=== PATIENT | female | born 1965 | race Caucasian/White ===

== ENCOUNTER 2016-12-24 14:39 | Observation (INO) | payer OTHER, MEDICARE ==
[2016-12-24] MEDS ORDERED: ASPIRIN 81 MG CHEW PO STA (15:31)
[2016-12-24] MEDS ORDERED: NITROGLYCERIN OINT 1 INCH/GM PACKET TOPICAL STA (15:31)
[2016-12-24 15:48] LABS: Basophils % (A) 1 %; CH 32.2; CHCM 35.4; Eosinophils # (A) 0.1 k/uL (0-0.7); Eosinophils % (A) 1 %; HCT 40.5 % (34.0-46.0); HDW 2.57; HGB 14.3 gm/dL (11.4-16.0); Luc # (Auto) 0.19; Luc % (Auto) 4; Lymphocytes # (A) 1.9 k/uL (1.0-4.8); Lymphocytes % (A) 35 %; MCH 32.4 pg (25.0-35.0); MCHC 35.4 g/dL (31.0-37.0); MCV 91.5 fL (80.0-100.0); Mean Platelet Volume 7.9; Monocytes # (A) 0.3 k/uL (0-1.0); Monocytes % (A) 5 %; Neutrophils # (A) 2.9 k/uL (1.3-7.7); Neutrophils % (A) 54 %; RBC 4.43 m/uL (3.80-5.40); RDW 12.6 % (11.5-15.5); WBC 5.4 k/uL (3.8-10.6); WBC (Perox) 5.44
--- NOTE | 2016-12-24 15:54 | XR ---
EXAMINATION TYPE: XR chest 2V DATE OF EXAM: 12/24/2016 3:48 PM COMPARISON: 09/08/2016 HISTORY: Chest pain TECHNIQUE: Frontal and lateral views of the chest are obtained. FINDINGS: Heart and mediastinum are normal. Lungs are clear. Diaphragm is normal. Bony thorax is int act. There are chest leads. IMPRESSION: Normal chest. No change.
[2016-12-24 16:01] LABS: ALT 39 U/L (9-52); AST 37 U/L (14-36); Alkaline Phosphatase 62 U/L (38-126); Anion Gap 12 mmol/L; Blood Urea Nitrogen 12 mg/dL (7-17); Calcium 10.1 mg/dL (8.4-10.2); Carbon Dioxide 23 mmol/L (22-30); Chloride 107 mmol/L (98-107); Glucose 94 mg/dL (74-99); Magnesium 2.1 mg/dL (1.6-2.3); Non-African American GFR(MDRD) >60 (>60 ml/min/1.73 sqM); Potassium 4.2 mmol/L (3.5-5.1); Sodium 142 mmol/L (137-145); Total Bilirubin 0.9 mg/dL (0.2-1.3); Total Protein 7.6 g/dL (6.3-8.2)
[2016-12-24 16:10] LABS: Creatine Kinase 127 U/L (30-135)
[2016-12-24 16:13] LABS: Partial Thromboplastin Time 22.9 sec (22.0-30.0); Prothrombin Time 10.4 sec (9.0-12.0)
[2016-12-24 16:23] LABS: Creatine Kinase MB 1.1 ng/mL (0.0-2.4); Troponin I <0.012 ng/mL (0.000-0.034)
[2016-12-24] MEDS ORDERED: MORPHINE SULFATE 4 MG/ML SYRINGE IV STA (16:55)
[2016-12-24] MEDS ORDERED: NITROGLYCERIN SL TABS 0.4 MG TAB SUBLINGUAL PRN (17:22)
--- NOTE | 2016-12-24 17:22 | ED ---
Chest Pain HPI - General Chief Complaint: Chest Pain Stated Complaint: rapid heart rate/feels off Time Seen by Provider: 12/24/16 15:23 Source: patient Mode of arrival: ambulatory Limitations: no limitations - History of Present Illness Initial Comments: This 51-year-old white female presents with a complaint of some chest pain and palpitations. The pain is on the left side and is described as a jabbing type of pain that seems to radiate posteriorly. It is intermittent in nature. She also complains of some moderate palpitations. She saw her tailings man yesterday, Dr. Packer, and he recommended a Holter monitor and echocardiogram. She did not have the pain at that time and that this came on this morning. She also has some shortness of breath which is worse with exertion but this is more chronic in nature. Her last stress test was in 2012. She has had occasional cough. She denies any fevers. She does have a history of previous DVT in fact or 5 Leiden deficiency. She previously was on Coumadin but could not tolerate this and so now is only on Ecotrin. She has occasional leg cramping but no swelling or edema. She denies any other complaints or modifying factors. - Related Data Home Medications Medication Instructions Recorded Confirmed Amitriptyline HCl [Elavil] 10 mg PO HS PRN 12/24/16 12/24/16 Aspirin EC [Ecotrin Low Dose] 81 mg PO DAILY 12/24/16 12/24/16 Cyanocobalamin/Folic AC/Vit B6 1 tab PO DAILY 12/24/16 12/24/16 [Foltabs 800 Tablet] Cyclobenzaprine [Flexeril] 5 mg PO TID 12/24/16 12/24/16 Dicyclomine [Bentyl] 20 mg PO QID PRN 12/24/16 12/24/16 Fluticasone Nasal [place] [Flonase 1 - 2 spr EA NOSTRIL DAILY PRN 12/24/16 Nasal [place]] Ibuprofen [Motrin] 800 mg PO Q8HR PRN 12/24/16 12/24/16 Levoxyl 100 mcg PO MOTUWETHFRSA 12/24/16 12/24/16 Levoxyl 150 mcg PO NIELSEN 12/24/16 12/24/16 Pantoprazole [Protonix] 40 mg PO DAILY 12/24/16 12/24/16 Sucralfate [Carafate] 1 gm PO QID 12/24/16 12/24/16 clonazePAM [KlonoPIN] 0.5 - 0.75 mg PO HS PRN 12/24/16 12/24/16 tiZANidine HCL [Zanaflex] 2 - 4 mg PO TID PRN 12/24/16 12/24/16 traMADol HCL [Ultram] 50 mg PO Q6H PRN 12/24/16 12/24/16 traZODone HCL [Desyrel] 50 - 100 mg PO HS 12/24/16 12/24/16 Allergies Allergy/AdvReac Type Severity Reaction Status Date / Time No Known Allergies Allergy Verified 12/24/16 15:41 Review of Systems ROS Statement: Those systems with pertinent positive or pertinent negative responses have been documented in the HPI. ROS Other: All systems not noted in ROS Statement are negative. Past Medical History Additional Past Medical History / Comment(s): factor V History of Any Multi-Drug Resistant Organisms: None Reported Past Psychological History: No Psychological Hx Reported Smoking Status: Never smoker Past Alcohol Use History: None Reported Past Drug Use History: None Reported General Exam - General Exam Comments Initial Comments: GENERAL: The patient is well nourished and well hydrated. VITAL SIGNS: Heart rate, blood pressure, respiratory rate reviewed as recorded in nurse's notes. EYES: Pupils are round and reactive. Extraocular movements are intact. No conjunctival / lid redness or swelling. ENT: No external evidence of injury, swelling, or ecchymosis. Airway is patent. Throat is clear. NECK: Nontender. No swelling or evidence of injury. No subcutaneous emphysema. Trachea is midline. No thyroid mass. HEART: Regular rate and rhythm. Good peripheral pulses. LUNGS/CHEST: Breath sounds clear and equal bilaterally. No rales, rhonchi, or wheezes. No ecchymosis, subcutaneous emphysema, or tenderness. ABDOMEN: Abdomen soft without tenderness. No palpable masses or organomegaly. No peritoneal signs. No abdominal wall swelling or ecchymosis. EXTREMITIES: No extremity tenderness. Normal muscle tone and function. No thoracolumbar tenderness. NEUROLOGIC: Sensation is grossly intact. Cranial nerve exam reveals face is symmetrical, tongue is midline, speech is clear. SKIN: No abrasions or ecchymosis is noted. No induration or masses noted. PSYCHIATRIC: Alert and oriented. Appropriate behavior and judgment. Limitations: no limitations Course Vital Signs 12/24/16 12/24/16 12/24/16 14:46 15:40 17:15 Temperature 99.0 F 97.9 F Pulse Rate 90 76 81 Respiratory 20 18 15 Rate Blood Pressure 121/91 102/66 109/66 O2 Sat by Pulse 99 98 97 Oximetry Chest Pain MDM - MDM The patient was seen and examined. All diagnostics were reviewed. An EKG was done and shows a normal sinus rhythm at a rate of 80. No acute ST-T wave changes are identified. The [place] interval is 132, QRS duration is 92, and QTC intervals 422. The chest x-ray is reviewed and does not show any acute abnormalities. The laboratory which does include a d-dimer and troponin is also essentially within normal limits. Shortly into the stay and after the nitroglycerin paste is applied, she does complain of a headache. She does receive some morphine for the headache. She also receives 1 inch of Nitropaste to anterior chest wall and an aspirin previously. Overall, the possibility of acute coronary syndrome certainly is plausible. Is felt as though she benefit from admission to the hospital for further treatment. Case will be discussed with internal medicine in the near future patient is admitted for a short stay admission. Disposition Clinical Impression: Chest pain, Unstable angina pectoris, Headache, Palpitations Disposition: ADMITTED IP TO THIS HOSP Condition: Fair Time of Disposition: 17:21 Decision Date: 12/24/16 Decision Time: 17:21
[2016-12-24] MEDS ORDERED: DICYCLOMINE 20 MG TAB PO PRN (17:26)
[2016-12-24] MEDS ORDERED: FLUTICASONE 50MCG/SPRAY NASAL 16GM EA NOSTRIL PRN (17:26)
[2016-12-24] MEDS ORDERED: tiZANidine 4 MG TAB PO PRN (17:26)
[2016-12-24] MEDS ORDERED: IBUPROFEN 800 MG TAB PO PRN (17:26)
[2016-12-24] MEDS: traMADol 50 MG TAB PO PRN (18:28)
[2016-12-24 18:49] VITALS: BMI 31.8
[2016-12-24] MEDS: MORPHINE SULFATE 4 MG/ML SYRINGE IV PRN (20:51)
[2016-12-24] MEDS: CYCLOBENZAPRINE 5 MG TAB PO SCH (20:52)
[2016-12-24] MEDS: traZODone HCL 50 MG TAB PO SCH (20:52)
[2016-12-24] MEDS: SUCRALFATE 1 GM TAB PO SCH (20:52)
[2016-12-24] MEDS ORDERED: clonazePAM 0.5 MG TAB PO PRN (21:00)
[2016-12-24] MEDS ORDERED: AMITRIPTYLINE HCL 10 MG TAB PO PRN (21:00)
[2016-12-24 22:38] LABS: Creatine Kinase 96 U/L (30-135)
[2016-12-24 22:51] LABS: Creatine Kinase MB 0.7 ng/mL (0.0-2.4); Troponin I <0.012 ng/mL (0.000-0.034)
[2016-12-25 03:21] LABS: Cholesterol 198 mg/dL (<200); HDL Cholesterol 67 mg/dL (40-60); Triglycerides 93 mg/dL (<150)
[2016-12-25 03:26] LABS: Creatine Kinase 77 U/L (30-135)
[2016-12-25 03:39] LABS: Creatine Kinase MB 0.6 ng/mL (0.0-2.4); Troponin I <0.012 ng/mL (0.000-0.034)
[2016-12-25] MEDS: SUCRALFATE 1 GM TAB PO SCH ×5 (04:49→21:34)
[2016-12-25] MEDS: NITROGLYCERIN OINT 1 INCH/GM PACKET TOPICAL SCH ×2 (04:50→06:35)
[2016-12-25] MEDS ORDERED: LEVOTHYROXINE 150 MCG PO SCH (06:30)
[2016-12-25] MEDS: traMADol 50 MG TAB PO PRN (07:55)
[2016-12-25] MEDS ORDERED: ENOXAPARIN 40 MG/0.4 ML SYRINGE SQ SCH (09:00)
[2016-12-25] MEDS ORDERED: ASPIRIN 325 MG TAB PO SCH (09:00)
[2016-12-25] MEDS: MORPHINE SULFATE 4 MG/ML SYRINGE IV PRN (09:35)
--- NOTE | 2016-12-25 10:14 | P.CRDCN ---
History of Present Illness Consult date: 12/25/16 Requesting physician: Brendan Ramos Consult reason: chest pain Chief complaint: Chest pain History of present illness: This is a pleasant 51-year-old female with history of hypothyroidism, factor V Leiden deficiency, prior DVT, spinal stenosis, who presents to the hospital with symptoms of chest discomfort. She does follow with Dr. Floyd, who is her wind field manager. According to the patient, for the past 2 weeks she states that she's been waking up in the morning with headache and mild diaphoresis. She also states that recently walking up stairs she has noticed shortness of breath. Yesterday, patient again awoke with headache, she states later on in the morning she developed a sharp pain in the left side of her chest that radiated through to her back. Pain worsened with deep breathing. She states that the pain lasted approximately 3 minutes in duration, but returned again later in the morning. For this reason she came to the hospital for further evaluation. Patient has been seen recently by her wind field manager because of symptoms of occasional palpitations, she has been referred to have an outpatient Holter monitor, and was scheduled to undergo an echocardiogram with Doppler study next week. EKG on arrival here showed normal sinus rhythm with changes. Subsequent EKG this morning shows normal sinus rhythm with no acute changes. Chest x-ray on admission normal. CBC normal, d-dimer 0.57. Potassium 4.2, BUN 12, creatinine 0.7. Troponins negative 3. Blood pressure 98/60 with heart rate in the 60s. At the time of my examination this morning, patient is currently chest pain-free. Past Medical History Past Medical History: GERD/Reflux, Thyroid Disorder Additional Past Medical History / Comment(s): factor V, lupus, reversal spondlosis neck/spine, minimal obstructive airway disease History of Any Multi-Drug Resistant Organisms: None Reported Past Surgical History: Cholecystectomy Additional Past Surgical History / Comment(s): endometriosis surgeries, righ knee scope and realigned with plate and screws, pre-cervical cancer with hysterectomy (only has right ovary), lump removed from right thigh Past Anesthesia/Blood Transfusion Reactions: No Reported Reaction Past Psychological History: No Psychological Hx Reported Smoking Status: Never smoker Past Alcohol Use History: None Reported Past Drug Use History: None Reported - Past Family History Mother Additional Family Medical History / Comment(s): aortic anersym and abdominal anersym, 2 NC, open heart surgery with pig graft. Medications and Allergies Home Medications Medication Instructions Recorded Confirmed Type Amitriptyline HCl [Elavil] 10 mg PO HS PRN 12/24/16 12/24/16 History Aspirin EC [Ecotrin Low Dose] 81 mg PO DAILY 12/24/16 12/24/16 History Cyanocobalamin/Folic AC/Vit B6 1 tab PO DAILY 12/24/16 12/24/16 History [Foltabs 800 Tablet] Cyclobenzaprine [Flexeril] 5 mg PO TID 12/24/16 12/24/16 History Dicyclomine [Bentyl] 20 mg PO QID PRN 12/24/16 12/24/16 History Fluticasone Nasal [place] [Flonase 1 - 2 spr EA NOSTRIL DAILY PRN 12/24/16 History Nasal [place]] Ibuprofen [Motrin] 800 mg PO Q8HR PRN 12/24/16 12/24/16 History Levoxyl 100 mcg PO MOTUWETHFRSA 12/24/16 12/24/16 History Levoxyl 150 mcg PO MCGRATH 12/24/16 12/24/16 History Pantoprazole [Protonix] 40 mg PO DAILY 12/24/16 12/24/16 History Sucralfate [Carafate] 1 gm PO QID 12/24/16 12/24/16 History clonazePAM [KlonoPIN] 0.5 - 0.75 mg PO HS PRN 12/24/16 12/24/16 History tiZANidine HCL [Zanaflex] 2 - 4 mg PO TID PRN 12/24/16 12/24/16 History traMADol HCL [Ultram] 50 mg PO Q6H PRN 12/24/16 12/24/16 History traZODone HCL [Desyrel] 50 - 100 mg PO HS 12/24/16 12/24/16 History Allergies Allergy/AdvReac Type Severity Reaction Status Date / Time No Known Allergies Allergy Verified 12/24/16 15:41 Physical Exam Vitals: Vital Signs Temp Pulse Resp BP Pulse Ox 12/25/16 08:00 97.9 F 68 14 98/68 97 12/25/16 04:00 98.1 F 16 102/60 95 12/25/16 00:00 18 03/25/17 23:33 69 18 101/55 95 12/24/16 20:00 18 12/24/16 19:35 98 F 74 18 103/61 95 12/24/16 18:30 98.0 F 73 16 102/59 95 Intake and Output 12/24/16 12/25/16 12/25/16 22:59 06:59 14:59 Other: Voiding Method Toilet Toilet Toilet # Voids 1 Weight 78.9 kg PHYSICAL EXAMINATION: HEENT: Head is atraumatic, normocephalic. Pupils equal, round. Neck is supple. There is no elevated jugular venous pressure. HEART EXAMINATION: Heart S1, S2 normal. No murmur or gallop heard. CHEST EXAMINATION: Lungs are clear to auscultation and precussion. No chest wall tenderness is noted on palpation or with deep breathing. ABDOMEN: Soft, nontender. Bowel sounds are heard. No organomegaly noted. EXTREMITIES: 2+ peripheral pulses with no evidence of peripheral edema and no calf tenderness noted. NEUROLOGIC patient is awake, alert and oriented -3. . Results 12/24/16 15:12 12/24/16 15:12 Cardiac Enzymes 12/24/16 12/25/16 Range/Units 21:30 02:41 CK-MB (CK-2) 0.7 0.6 (0.0-2.4) ng/mL Troponin I <0.012 <0.012 (0.000-0.034) ng/mL Lipids 12/25/16 Range/Units 02:41 Triglycerides 93 (<150) mg/dL Cholesterol 198 (<200) mg/dL HDL Cholesterol 67 H (40-60) mg/dL Current Medications Generic Name Dose Route Start Last Admin Trade Name Freq PRN Reason Stop Dose Admin Amitriptyline HCl 10 mg 12/24/16 21:00 Elavil PO HS PRN SLEEP Aspirin 325 mg 12/25/16 09:00 Aspirin PO DAILY FARHAT Clonazepam 0.5 mg 12/24/16 21:00 Klonopin PO HS PRN ANXIETY/SLEEP Cyclobenzaprine HCl 5 mg 12/24/16 22:00 12/24/16 20:52 Flexeril PO 5 mg TID FARHAT Administration Dicyclomine HCl 20 mg 12/24/16 17:26 Bentyl PO QID PRN Stomach cramps Enoxaparin Sodium 40 mg 12/25/16 09:00 Lovenox SQ DAILY [facility] Fluticasone Propionate 2 spray 12/24/16 17:26 Flonase Nasal [place] EA NOSTRIL DAILY PRN Allergy Symptoms Folic Acid 1 each 12/25/16 09:00 Folbic PO DAILY [facility] Ibuprofen 800 mg 12/24/16 17:26 Motrin PO Q8HR PRN Headache Morphine Sulfate 4 mg 12/24/16 17:22 12/25/16 09:35 Morphine Sulfate (Inj) IV 4 mg Q3H PRN Administration Severe Pain Nitroglycerin 0.5 inch 12/25/16 00:00 12/25/16 06:35 Nitro-Bid Oint TOPICAL Not Given Q6HR [facility] Nitroglycerin 0.4 mg 12/24/16 17:22 Nitrostat SUBLINGUAL Q5M PRN Chest Pain Non-Formulary Medication 100 mcg 12/26/16 06:30 Levoxyl PO [id number] [facility] Non-Formulary Medication 150 mcg 12/25/16 06:30 Levoxyl PO [email or web address] [facility] Pantoprazole Sodium 40 mg 12/25/16 09:00 Protonix PO DAILY [facility] Sucralfate 1 gm 12/24/16 18:00 12/25/16 04:49 Carafate PO Not Given QID [facility] Tizanidine HCl 4 mg 12/24/16 17:26 Zanaflex PO TID PRN Spasms Tramadol HCl 50 mg 12/24/16 17:26 12/25/16 07:55 Ultram PO 50 mg Q6H PRN Administration Moderate Pain Trazodone HCl 50 mg 12/24/16 21:00 12/24/16 20:52 Desyrel PO 50 mg HS [facility] Administration Intake and Output 12/24/16 12/25/16 12/25/16 22:59 06:59 14:59 Other: Voiding Method Toilet Toilet Toilet # Voids 1 Weight 78.9 kg EKG Interpretations (text) EKG shows normal sinus rhythm with no acute changes. Assessment and Plan Plan: Assessment and plan #1 atypical chest discomfort, troponins negative 3. EKG shows normal sinus rhythm with no acute changes. D-dimer negative. #2 hypothyroidism #3 factor V Leiden deficiency, history of prior DVT, patient had been on Coumadin in the past, she takes an aspirin daily. #4 cardiac risk factors negative for hypertension, no diabetes, no hyperlipidemia, patient does not smoke. #5 history of reversible spondylosis Plan We will obtain an echocardiogram with Doppler study. Patient has also been advised to undergo stress echocardiographic study tomorrow if negative she may be able to be discharged from cardiology's perspective to follow-up with her wind field manager on discharge. We will discontinue the nitro paste, discontinue Lovenox, decrease aspirin 81 mg daily. Further recommendations to follow. DNP note has been reviewed, I agree with a documented findings and plan of care. Patient was seen and examined.
[2016-12-25] MEDS: CYANOCOBALAMIN-FA-PYRIDOXINE 1 EACH TAB PO SCH (10:56)
[2016-12-25] MEDS: PANTOPRAZOLE 40 MG TABLET PO SCH (10:57)
[2016-12-25] MEDS: CYCLOBENZAPRINE 5 MG TAB PO SCH ×3 (10:57→21:34)
[2016-12-25] MEDS ORDERED: LEVOXYL 100 MCG PO SCH (12:00)
[2016-12-25 12:53] VITALS: RESP 16
[2016-12-25] MEDS ORDERED: RX INFO: IV CONTRAST WAS GIVEN 1 EACH MISC MISCELLANE PRN (18:35)
--- NOTE | 2016-12-25 19:49 | CT ---
EXAMINATION TYPE: CT angio chest DATE OF EXAM: 12/25/2016 7:40 PM COMPARISON: NONE HISTORY: Patient complains of chest pain and difficulty breathing. CT DLP: 254.4 mGycm Automated exposure control for dose reduction was used. CONTRAST: CTA scan of the thorax is performed with IV Contrast, patient injected with 100 mL of Omnipaque 350, pulmonary embolism protocol. . FINDINGS: There are 3-D post processed images. There is no pleural effusion. There is no pericardial effusion. There is mild linear density at the l eft lung base consistent with subsegmental atelectasis. There is no evidence of a pulmonary mass. There is no mediastinal adenopathy. There are no hilar masses. Heart size is normal. There are no stephanie ling defects in the pulmonary arteries. There is no evidence of aortic aneurysm or dissection. The [place] thorax is intact. IMPRESSION: NO EVIDENCE OF PULMONARY EMBOLISM. MINIMAL SUBSEGMENTAL ATELECTASIS AT THE LEFT LUNG BASE.
[2016-12-25] MEDS: traZODone HCL 50 MG TAB PO SCH (21:34)
[2016-12-26] MEDS ORDERED: LEVOXYL 100 MCG PO SCH (06:30)
[2016-12-26] MEDS: traMADol 50 MG TAB PO PRN ×2 (07:36→14:05)
[2016-12-26 07:44] LABS: Glucose,Whole Blood 91 mg/dL (75-99)
--- NOTE | 2016-12-26 08:24 | HP ---
DATE OF ADMISSION: 12/24/2016 PRESENTING COMPLAINT: Headache, chest pain. HISTORY OF PRESENTING COMPLAINT: This is a very pleasant 51 -year-old patient of Dr. Bobby with rather extensive medical history. Chronic stable conditions include GERD, hypothyroid, factor V Leiden deficiency, mutation. Patient also has been told in the past she has been diagnosed with Lupus and then with a question about not having the same. Patient also has had deep venous thromboses in the past. Patient has got a diagnosis of reverse spondylosis. Hence not able to sleep at night and sleeping only 2 to 3 hours. Does not sleep in the daytime. The patient saw a associate professor of forestry, Dr. Floyd, a couple of days ago and noticed skipping beat and was ordered Holter. Patient presented here with multi symptoms, when she had nausea, headaches especially in the morning for the last 6 to 7 days, also has been having sharp, piercing pain in the left upper part of the chest. Her chest questionable shortness of breath. No dizziness. No lightheadedness, no radiation not really related to exertion. Patient was seen by cardiology earlier, who did order a stress test, the patient has had DVT' in the past. REVIEW OF SYSTEMS: CONSTITUTIONAL: Tired. HEENT: Generalized headache, not debilitating. NECK: None. RESPIRATORY: As above. CARDIOVASCULAR: As above. GASTROINTESTINAL: None. GENITOURINARY: None. MUSCULOSKELETAL: Aches and pains in the joints. Dermatological: The fingertips skin and the fingertips just get discolored, getting cold. HEMATOLOGICAL: History of deep venous thrombosis. LYMPHATICS: None. PSYCHIATRY: Anxious. NEUROLOGICAL: None. Past medical history: Gastroesophageal reflux disease, hypothyroid, factor V mutation, lupus, reverse spondylosis, minimal obstructive airway disease. Irritable bowel syndrome. PAST SURGICAL HISTORY: Cholecystectomy, endometriosis, right knee scope, hysterectomy, lump removed from the right thigh, left oophorectomy. SOCIAL HISTORY: . Does not smoke or drink alcohol, homemaker. Family history of aortic aneurysm, abdominal aneurysm, two MIs. HOME MEDICATIONS: 1. Levoxyl 150 mcg on Sundays 100 mcg on Monday, Monday, Monday, , Monday, Monday. 2. Bentyl 20 mg p.o. q.i.d. p.r.n. 3. Flexeril 5 mg p.o. t.i.d. 4. Aspirin 320 mg p.o. daily. 5. Desyrel 50 to 100 mg p.o. q.h.s. 6. Ultram 50 mg q.6. 7. Zanaflex 4 mg p.o. daily p.r.n. 8. Klonopin 0.5 to 0.75 mg p.o. q.h.s. p.r.n. 9. Protonix 40 mg a day. 10. Flonase 1 to 2 sprays each nostril daily p.r.n. 11. Carafate 1 gram p.o. q.i.d. 12. Motrin 800 mg p.o. q.8 p.r.n. 13. Elavil 100 mg p.o. q.8 p.r.n. 14. Foltabs 1 tablet p.o. daily. ALLERGIES: None. PHYSICAL EXAMINATION: Vital signs on exam, temperature 98.3, pulse 58, respirations 16, blood pressure 111/33, pulse ox 97% on room air. GENERAL: Average build, lying in bed, not in distress. EYES: Pupils equal, conjunctivae normal. HEENT: Oral cavity normal. NECK: JVD not raised. Mass not palpable. RESPIRATORY: Effort normal. Lungs are clear. CARDIOVASCULAR: First and second sounds normal. No edema. ABDOMEN: Soft and nontender. Liver and spleen not palpable. LYMPHATIC: No lymph nodes palpable in neck or axillae. PSYCHIATRY: Alert and oriented x3. Mood and affect slightly anxious appearing. NEUROLOGICAL: Pupils equal, cranial nerves grossly intact. Power and sensation grossly intact. INVESTIGATIONS: White count 5.4, hemoglobin 14.3, potassium 4.2. BUN and creatinine are normal. Troponin x3 negative. LDL 112. EKG normal sinus rhythm. ASSESSMENT: 1. ( ) left anterior chest wall pain could be musculoskeletal. Given the history of lupus and deep venous thrombosis in the past, need to rule out pulmonary embolism. 2. Chronic gastroesophageal reflux disease. 3. Hypothyroidism. 4. Factor V Leiden mutation. 5. Possible history of lupus. 6. 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 7. Irritable bowel syndrome. 8. Severe sleep deprivation with exhaustion due to underlying chronic pain. PLAN: ( ) was held with the patient and , talked about lifestyle modification. Patient needs to get some catch up naps during the daytime. Did talk about pain controlling modalities like mindfulness, water aerobics, stretching. We ordered a CT angio of the chest to rule out PE. Cardiology has ordered a stress echocardiogram for the morning. We will have patient follow with Dr. Herr as an outpatient for the history of DVT's in the setting of lupus. 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 Questions were answered. Copy to Dr. Bobby.
[2016-12-26] MEDS: MORPHINE SULFATE 4 MG/ML SYRINGE IV PRN (08:45)
[2016-12-26] MEDS ORDERED: ASPIRIN 81 MG CHEW PO SCH (09:00)
[2016-12-26] MEDS: PANTOPRAZOLE 40 MG TABLET PO SCH (11:03)
[2016-12-26] MEDS: SUCRALFATE 1 GM TAB PO SCH ×2 (11:03→13:48)
[2016-12-26] MEDS: CYCLOBENZAPRINE 5 MG TAB PO SCH (11:04)
[2016-12-26] MEDS: CYANOCOBALAMIN-FA-PYRIDOXINE 1 EACH TAB PO SCH (11:04)
--- NOTE | 2016-12-26 11:08 | ECHOF ---
Referral Reason:chest pain MEASUREMENTS -------- HEIGHT: 157.5 cm WEIGHT: 78.5 kg BP: 96/54 IVSd: 1.1 cm (0.6 - 1.1) LVIDd: 3.0 cm (3.9 - 5.3) LVPWd: 1.2 cm (0.6 - 1.1) IVSs: 1.3 cm LVIDs: 1.8 cm LVPWs: 1.7 cm Ao Diam: 3.0 cm (2.0 - 3.7) AV Cusp: 1.4 cm (1.5 - 2.6) LA Diam: 2.6 cm (2.7 - 3.8) MV EXCURSION: 16.920 mm (> 18.000) MV EF SLOPE: 133 mm/s (70 - 150) EPSS: 0.8 cm MV E Be: 0.86 m/s MV DecT: 181 ms MV A Be: 0.82 m/s MV E/A Ratio: 1.05 FINDINGS -------- Sinus rhythm with extra systolic beats. This was a technically good study. The left ventricular size is normal. Left ventricular wall thickness is normal. Overall left ventricular systolic function is normal with, an EF between 55 - 60 %. The right ventricle is normal in size and function. The left atrium is normal in size. The right atrium is normal in size. The aortic valve is trileaflet, and appears structurally normal. No aortic stenosis or regurgitation. The mitral valve is normal. There is trace mitral regurgitation. Trace tricuspid regurgitation present. The right ventricular systolic pressure, as measured by Doppler, is {RVSP}. There is no pulmonic regurgitation present. The aortic root size is normal. There is no pericardial effusion. CONCLUSIONS -------- 1. Sinus rhythm with extra systolic beats. 2. There is no pulmonic regurgitation present. 3. The aortic root size is normal. 4. There is no pericardial effusion. 5. This was a technically good study. 6. Left ventricular wall thickness is normal. 7. Overall left ventricular systolic function is normal with, an EF between 55 - 60 %. 8. The left atrium is normal in size. 9. The aortic valve is trileaflet, and appears structurally normal. No aortic stenosis or regurgitation. 10. There is trace mitral regurgitation. 11. Trace tricuspid regurgitation present. 12. The right ventricular systolic pressure, as measured by Doppler, is {RVSP}. VENDOR RELATIONSHIP MANAGER: Adela Arredondo RDCS
[2016-12-26 11:35] VITALS: BP 106/61; PULSE 69; TEMP 99.2
--- NOTE | 2016-12-26 14:20 | ECHOS ---
DATE OF SERVICE: 12/26/2016 AGE: 51Y SEX: F HT: 62" WT: 173 lbs. Protocol Nicholas: Others: Stage: Dur. of Exercise: 6 minutes *Heart Rate Blood Pressure *Rest: 83 Rest: 115/54 * *Max. Achieved: 158 Maximum BP: 181/48 85% PMHR: 143 100% PMHR: 168 *METS: 7.1 INDICATIONS: Chest pain. MEDICATIONS: See list. Baseline rhythm is sinus mechanism, rate of 83, normal axis and intervals. Evidence of left ventricular hypertrophy. Baseline blood pressure 113/54 mm Hg. Patient exercised on Nicholas protocol for 6 minutes reaching peak rate of 158 beats per minute, which is equal to 94% of maximum predicted heart rate; peak blood pressure 181/48 mmHg. Test was stopped due to fatigue. There was no chest pain. Electrocardiographic monitoring revealed no evidence of diagnostic ischemic ST deviation. FINDINGS: Baseline echocardiogram revealed normal wall motion. At peak exercise there was normal wall motion augmentation with no hypokinesis or dyskinesis. CONCLUSION: 1. Average exercise tolerance with normal electrocardiograph response to exercise. 2. Normal stress echocardiogram with no evidence of stress-induced ischemia.
--- NOTE | 2016-12-28 07:38 | DS ---
DATE OF ADMISSION: 12/24/2016 DATE OF DISCHARGE: 12/26/2016 FINAL DIAGNOSES: 1. Left anterior chest wall pain, probably musculoskeletal. 2. Gastroesophageal reflux disease. 3. Hypothyroidism. 4. Factor V Leiden mutation. 5. Possible history of lupus. 6. Reverse spondylosis of cervical, thoracic spine. 7. Irritable bowel syndrome. 8. Severe sleep deprivation with exhaustion due to underlying chronic pain. HOSPITAL COURSE: This patient with multiple problems and a question of diagnosis of lupus, presented atypical sounding sharp musculoskeletal pain. Patient did undergo a stress echocardiogram that was negative for ischemia and also 2-D echocardiogram that showed preserved LV function 55% to 60%. The patient may want to see local prop maker Dr. Calzada as she wants to move her care locally. Also, wanted to get an opinion from logistics operations manager; hence, told the patient to see Dr. Herr locally. On examination, lungs are clear. CARDIOVASCULAR: First and second sounds normal. Please refer to my H&P for more details. DISCHARGE MEDICATIONS: 1. Elavil 10 mg p.o. q.h.s. p.r.n. 2. Aspirin 81 mg p.o. daily. 3. Foltabs 800, one tablet p.o. daily. 4. Flexeril 5 mg p.o. t.i.d. 5. Bentyl 20 mg p.o. q.i.d. p.r.n. 6. Flonase 1 to 2 sprays each nostril daily p.r.n. 7. Motrin 800 mg p.o. q.8 p.r.n. 8. Levoxyl 100 mcg Monday, Monday, Monday, , Monday, Monday and 150 mcg on Monday. 9. Protonix 40 mg p.o. daily. 10. Carafate 1 gram p.o. q.i.d. 11. Klonopin 0.5 to 0.75 p.o. q.h.s. p.r.n. 12. Zanaflex 2 to 4 mg p.o. t.i.d. p.r.n. 13. Ultram 50 mg p.o. q.6 p.r.n. 14. Trazodone 50 to 100 mg p.o. q.h.s. Follow up with her clock maker in one week. Follow up with a prop maker in one week. Follow up with Dr. Herr in one week. Follow up with Dr. Bobby in one week. The patient has been given a Holter monitor through her own clock maker.
== END 2016-12-26 15:52 | disposition home or self-care (01) ==
LOC: EC 14:39 → 3OBS 17:21
PROVIDERS: ADMIT Hospitalist; ATTEND Hospitalist
DX: R07.89 Other chest pain (principal); K21.9 Gastro-esophageal reflux disease without esophagitis; E03.9 Hypothyroidism, unspecified; D68.51 Activated protein C resistance; M47.812 Spondylosis without myelopathy or radiculopathy, cervical region; M47.814 Spondylosis without myelopathy or radiculopathy, thoracic region; K58.9 Irritable bowel syndrome, unspecified; Z72.820 Sleep deprivation; G89.29 Other chronic pain; R53.83 Other fatigue; Z86.718 Personal history of other venous thrombosis and embolism; Z79.82 Long term (current) use of aspirin; R06.02 Shortness of breath; R00.2 Palpitations; Z79.899 Other long term (current) drug therapy; R05 Cough; R25.2 Cramp and spasm; G44.40 Drug-induced headache, not elsewhere classified, not intractable; T46.3X5A Adverse effect of coronary vasodilators, initial encounter; Y92.239 Unspecified place in hospital as the place of occurrence of the external cause; R51 Headache; R11.0 Nausea; F41.9 Anxiety disorder, unspecified
CPT/HCPCS: 99285 ×2; 96375 ×3; 36415; 93005; 93017; 93306; 93350; 85379; 83880; 80061; 80053; 82550 ×2; 82553 ×2; 83735; 84484 ×2; 85025; 85610; 85730; 71020; 71275; G0378 ×3; J2270 ×3; Q9967; Q9957; 96374; 96376

== ENCOUNTER 2017-03-08 11:02 | Day surgery (SDC) | payer OTHER, MEDICARE ==
[2017-03-07 11:15] VITALS: BMI 31.1
[~2017-03-08 11:02] MED LIST: ALBUTEROL NEB (CONC) 2.5 MG/0.5 ML INHALATION ONE; LACTATED RINGERS 1,000 ML IV ONE; LACTATED RINGERS 1,000 ML IV SCH; LIDOCAINE 1% 20 ML VIAL (10MG/ML) FOR IV START INTRADERMA PRN; LIDOCAINE 2% (PF) 20 MG/ML 10ML INHALATION ONE
[2017-03-08 11:31] VITALS: TEMP 99
[2017-03-08] MEDS ORDERED: PROPOFOL 10 MG/ML 20 ML VIAL IV ONE (12:05)
[2017-03-08] MEDS ORDERED: LIDOCAINE 2% (PF) 20 MG/ML 10ML INHALATION ONE (12:34)
--- NOTE | 2017-03-08 12:41 | P.PCN ---
Date of Procedure: 03/08/17 Preoperative Diagnosis: Chronic cough Postoperative Diagnosis: Chronic cough Procedure(s) Performed: Bronchoscopy and bronchioloalveolar lavage of the lingula Implants: Anesthesia: MAC Surgeon: Holly Wright Estimated Blood Loss (ml): 0 Pathology: other Condition: stable Disposition: same day Indications for Procedure: This is a 50-year-old female patient with history of chronic cough. The patient has had frequent bouts of coughing and she was suspected to have recurrent bronchitis. She was treated with a combination of antibiotics in the past. Her baseline FEV1 on spirometry is in the order of 79% of predicted with some reversibility post-bronchodilation. Her baseline IgE level was low. I initially thought that the patient had an asthmatic cough and I treated her with a combination of Advair and Singulair. Unfortunately the patient was unable to maintain her inhalers due to high cost of the inhalers. She presented back to me with ongoing cough. Had a methacholine challenge test was nondiagnostic. A CAT scan of the chest was done in November 2016 showed some limited atelectatic changes in the left lung. The patient is a chronic nonsmoker. No stiff heartburn. She is currently being treated with a combination of Carafate and Protonix. No postnasal drainage. No history of any pulmonary infection in the past. For all this reasons, I bronchoscopy was indicated. She is known to have fibromyalgia, IBS, hypothyroidism, generalized anxiety disorder. Operative Findings: The procedure was done under conscious sedation. Anesthetic agents was administered by MANAGER MARKET DEVELOPMENT the bedside. After achieving adequate sedation, a flexible bronchoscope was inserted the right nostril and was dressed upper airway. Examination of posterior oropharynx, larynx, epiglottis, arytenoids, true and false vocal cords showed no acute abnormalities. No upper airway abnormalities. No lesions. No tumors. No nodules. No masses. Vocal cord function and mobility was within normal limits. Following that, a total of 2 mL of 1% lidocaine was applied to the vocal cords and the bronchoscope was advanced into the upper trachea. Examination of the tracheal bronchial tree was done. The visualized airways into the trachea, bilateral mainstem bronchi, right upper lobe bronchus, bronchus intermedius, right middle lobe bronchus, right lower lobe bronchus, left upper lobe bronchus, left lower lobe bronchus, along with its various segments and subsegments. The underlying bronchial mucosa seems to be irritated and inflamed and there was some superficial hemorrhagic spots scattered throughout the patient's airways. No endobronchial tumors. No foreign bodies. No masses. No significant respiratory secretions. The bronchoscope was wedged into the superior segment of the lingula and total of 120 mL of fluid was infused and around 30-40 mL was suctioned back. The aspirate was nonbloody. The patient had minimal coughing during the procedure. She started the procedure well. The bronchoscope was removed. The patient was transferred recovery in stable condition. The bronchioloalveolar lavage will be sent for microbial cultures and analysis. Description of Procedure:
[2017-03-08 13:13] VITALS: BP 108/74; PULSE 82; RESP 18
[2017-03-08 17:38] LABS: RBC, Body Fluid 70800 /uL
--- NOTE | 2017-03-14 07:17 | CDI ---
Dr. Wright Per your Procedure Note the procedure was performed under conscious sedation and anesthetic agents were administered by YARD WORKER at bedside. Propofol is noted to be administered. The coding department has been informed that when the anesthesia department is involved, the course of action isnt conscious sedation. There looks to be conflicting documentation within the record. Please clarify. Per new CMS ([employer] for Medicare and Medicaid Services) guidelines there is a change by which the work of moderate/conscious sedation will be reimbursed separately. Further clarification of the documentation of IV sedation is needed for proper reporting purposes. Please clarify the type of sedation this patient received during the cardiac catheterization. Moderate/conscious sedation MAC (unconscious sedation) General Anesthesia Other (please specify) Please document your findings in an addendum to the Procedure Note. If you have any questions about this query, you may contact Press Cutter, Tina Haro at between 8am and 6pm Monday-Monday Thank you for your time. NELLY Call
--- NOTE | 2017-03-14 16:13 | P.PN ---
Progress Note - Text The procedure was done under sedation as documented by anesthesia staff. Disregard my conscious sedation comment in the previous procedure note.
== END 2017-03-08 14:04 | disposition home or self-care (01) ==
LOC: ORWHC2ENDO 11:02
PROVIDERS: ATTEND Internal Medicine Critical Care Medicine
DX: R05 Cough (principal); K21.9 Gastro-esophageal reflux disease without esophagitis; J45.909 Unspecified asthma, uncomplicated; J30.9 Allergic rhinitis, unspecified; M79.7 Fibromyalgia; K58.9 Irritable bowel syndrome, unspecified; D68.51 Activated protein C resistance; E03.9 Hypothyroidism, unspecified; Z79.51 Long term (current) use of inhaled steroids; Z79.899 Other long term (current) drug therapy; Z88.8 Allergy status to other drugs, medicaments and biological substances; Z85.828 Personal history of other malignant neoplasm of skin; Z86.718 Personal history of other venous thrombosis and embolism
CPT/HCPCS: 94640; 87798 ×4; 87496; 87498; 87529 ×2; 88108; 88305; 89050; 87252; 87502 ×2; 87070; 87205; 87116; 87102; 87206; 31624; J2001; J2704

== ENCOUNTER 2017-10-21 22:30 | Emergency (ER) | payer OTHER, MEDICARE ==
[2017-10-21] MEDS ORDERED: SODIUM CHLORIDE 0.9% 1,000 ML IV STA (23:31)
[2017-10-21] MEDS ORDERED: IPRATROPIUM-ALBUTEROL 3 ML NEB INHALATION STA (23:31)
--- NOTE | 2017-10-21 23:55 | XR ---
EXAMINATION TYPE: XR chest 2V DATE OF EXAM: 10/21/2017 COMPARISON: 12/24/2016 HISTORY: Cough TECHNIQUE: Frontal and lateral views of the chest are obtained. FINDINGS: Heart and mediastinum are normal. Lungs are clear. Diaphragm is normal. Bony thorax is int act. IMPRESSION: Normal chest. No change.
[2017-10-22 00:22] VITALS: TEMP 97
[2017-10-22 00:31] LABS: Basophils % (A) 0 %; Eosinophils % (A) 0 %; HCT 40.2 % (34.0-46.0); HGB 13.8 gm/dL (11.4-16.0); Lymphocytes # (A) 1.9 k/uL (1.0-4.8); Lymphocytes % (A) 27 %; MCH 31.9 pg (25.0-35.0); MCHC 34.3 g/dL (31.0-37.0); Mean Platelet Volume 6.9; Monocytes # (A) 0.5 k/uL (0-1.0); Monocytes % (A) 7 %; Neutrophils # (A) 4.4 k/uL (1.3-7.7); Neutrophils % (A) 64 %; Platelet Count 299 k/uL (150-450); RBC 4.32 m/uL (3.80-5.40); RDW 12.6 % (11.5-15.5)
[2017-10-22] MEDS ORDERED: ONDANSETRON 4 MG/2 ML VIAL IVP STA (00:37)
[2017-10-22] MEDS ORDERED: PROMETHAZ-COD 6.25-10 MG/5 ML 5 ML CUP PO STA (00:38)
--- NOTE | 2017-10-22 00:38 | ED ---
URI HPI - General Chief Complaint: Upper Respiratory Infection Stated Complaint: Cough Time Seen by Provider: 10/21/17 22:59 Source: patient, RN notes reviewed, old records reviewed Mode of arrival: ambulatory Limitations: no limitations - History of Present Illness Initial Comments: 49-year-old female she bled of respiratory congestion since September 18. Patient reports that she's been off and on antibiotics and steroids. She reports she went to her primary care provider and they started her on prednisone and doxycycline on Monday. She states she's been taking his with a little relief. Patient is concerned she is continued to have a cough. She also complains of some pressure radiating towards her right shoulders and her chest. She states that she has had no known fevers or chills. No significant nausea or vomiting.Patient denies any recent fever, chills, back pain, abdominal pain, nausea vomiting, numbness or tingling, dysuria or hematuria, constipation or diarrhea, headaches or visual changes, or any other current symptoms - Related Data Home Medications Medication Instructions Recorded Confirmed Amitriptyline HCl [Elavil] 10 mg PO HS PRN 12/24/16 03/08/17 Aspirin EC [Ecotrin Low Dose] 81 mg PO DAILY 12/24/16 03/07/17 Cyanocobalamin/Folic AC/Vit B6 1 tab PO DAILY 12/24/16 03/07/17 [Foltabs 800 Tablet] Cyclobenzaprine [Flexeril] 5 mg PO TID PRN 12/24/16 03/08/17 Dicyclomine [Bentyl] 20 mg PO QID PRN 12/24/16 03/08/17 Fluticasone Nasal [place] [Flonase 1 - 2 spr EA NOSTRIL DAILY PRN 12/24/16 Nasal [place]] Ibuprofen [Motrin] 800 mg PO Q8HR PRN 12/24/16 03/08/17 Pantoprazole [Protonix] 40 mg PO DAILY 12/24/16 03/08/17 Sucralfate [Carafate] 1 gm PO QID 12/24/16 03/08/17 tiZANidine HCL [Zanaflex] 4 mg PO TID PRN 12/24/16 03/08/17 Albuterol Sulfate [Proair Hfa] 1 - 2 puff INHALATION Q6HR PRN 03/07/17 03/08/17 [place]/APAP/Caf/Cod 64-008-44-30 1 cap PO Q8H 03/07/17 03/08/17 [Fioricet w/Cod 40-061-91-30MG] Levothyroxine Sodium [Levoxyl] 100 mcg PO MOTUWETHFRSA 03/07/17 03/07/17 Levothyroxine Sodium [Levoxyl] 150 mcg PO NIELSEN 03/07/17 03/08/17 Tapentadol HCl [Nucynta ER] 50 mg PO BID 03/07/17 03/08/17 Previous Rx's Medication Instructions Recorded Promethazine/Dextromethorphan 5 ml PO TID #120 ml 10/22/17 [Phenergan DM Syrup] Allergies Allergy/AdvReac Type Severity Reaction Status Date / Time adhesive tape Allergy Itching/BLI Verified 10/21/17 22:44 STERS Review of Systems ROS Statement: Those systems with pertinent positive or pertinent negative responses have been documented in the HPI. ROS Other: All systems not noted in ROS Statement are negative. Past Medical History Past Medical History: Chest Pain / Angina, Deep Vein Thrombosis (DVT), Fibromyalgia, GERD/Reflux, Osteoarthritis (OA), Thyroid Disorder Additional Past Medical History / Comment(s): factor V, lupus, reversal spondlosis neck/spine, minimal obstructive airway disease,DVT-LEFT LEG-GROIN, lupus History of Any Multi-Drug Resistant Organisms: None Reported Past Surgical History: Cholecystectomy Additional Past Surgical History / Comment(s): endometriosis surgeries, right knee scope and realigned with plate and screws, pre-cervical cancer with hysterectomy , lump removed from right thigh,left ovary removed,right foot x3, left foot Past Anesthesia/Blood Transfusion Reactions: No Reported Reaction Past Psychological History: Anxiety Smoking Status: Never smoker Past Alcohol Use History: None Reported Past Drug Use History: None Reported - Past Family History Mother Family Medical History: Cancer Additional Family Medical History / Comment(s): lung and bone cancer General Exam - General Exam Comments Initial Comments: 51-year-old female. No acute distress. Limitations: no limitations General appearance: alert, in no apparent distress Head exam: Present: atraumatic, normocephalic, normal inspection Eye exam: Present: normal appearance, PERRL, EOMI. Absent: scleral icterus, conjunctival injection, periorbital swelling ENT exam: Present: normal exam, mucous membranes moist Neck exam: Present: normal inspection. Absent: tenderness, meningismus, lymphadenopathy Respiratory exam: Present: normal lung sounds bilaterally, other (No significant wheezing noted.). Absent: respiratory distress, wheezes, rales, rhonchi, stridor Cardiovascular Exam: Present: regular rate, normal rhythm, normal heart sounds. Absent: systolic murmur, diastolic murmur, rubs, gallop, clicks GI/Abdominal exam: Present: soft, normal bowel sounds. Absent: distended, tenderness, guarding, rebound, rigid Extremities exam: Present: normal inspection, full ROM, normal capillary refill. Absent: tenderness, pedal edema, joint swelling, calf tenderness Back exam: Present: normal inspection Neurological exam: Present: alert, oriented X3, CN II-XII intact Psychiatric exam: Present: normal affect, normal mood Course Vital Signs 10/21/17 10/22/17 10/22/17 22:42 00:10 00:21 Temperature 98.0 F 97.0 F L Pulse Rate 76 76 72 Respiratory 22 18 Rate Blood Pressure 136/79 138/74 O2 Sat by Pulse 98 97 Oximetry 10/22/17 10/22/17 00:28 02:25 Temperature 97.0 F L Pulse Rate 76 69 Respiratory 16 Rate Blood Pressure 105/61 O2 Sat by Pulse 97 Oximetry Medical Decision Making - Medical Decision Making This patient is a 51-year-old female presents with a worsening cough over the past week. She reports that she's been having this cough and upper respiratory symptoms from September 18. She states she went to her primary care doctor's earlier this week, was started on steroids and doxycycline for this. She complains of the she's been having worsening time breathing. At this time patient's vital signs are all stable. She did complain of some chest discomfort that started this morning occasional sharp pains in the right side of her chest. Patient is given IV fluids labwork obtained. White count was within normal limits. Negative troponin. Negative d-dimer. Patient chest x- ray was reviewed and negative for any acute process. EKG shows no significant abnormalities. Patient informed of these results. I discussed with her oxygen saturation being within normal limits, no significant wheezing at this time and do not have any admission criteria for the patient. I discussed I want her to follow-up with her tool storage attendant Dr. Wright and PCP. I discussed that at this time patient should continue her steroids and antibiotics she's been prescribed. I will write the patient for cough syrup. Discussed strict return parameters and following up with PCP. Patient understands treatment plan will comply. - Lab Data Result diagrams: 10/22/17 00:10 10/22/17 00:10 Lab Results 10/22/17 10/22/17 10/22/17 Range/Units 00:10 00:10 00:10 WBC 7.0 (3.8-10.6) k/uL RBC 4.32 (3.80-5.40) m/uL Hgb 13.8 (11.4-16.0) gm/dL Hct 40.2 (34.0-46.0) % MCV 93.0 (80.0-100.0) fL MCH 31.9 (25.0-35.0) pg MCHC 34.3 (31.0-37.0) g/dL RDW 12.6 (11.5-15.5) % Plt Count 299 (150-450) k/uL Neutrophils % 64 % Lymphocytes % 27 % Monocytes % 7 % Eosinophils % 0 % Basophils % 0 % Neutrophils # 4.4 (1.3-7.7) k/uL Lymphocytes # 1.9 (1.0-4.8) k/uL Monocytes # 0.5 (0-1.0) k/uL Eosinophils # 0.0 (0-0.7) k/uL Basophils # 0.0 (0-0.2) k/uL D-Dimer 0.54 (<0.60) mg/L FEU Sodium 141 (137-145) mmol/L Potassium 4.3 (3.5-5.1) mmol/L Chloride 104 (98-107) mmol/L Carbon Dioxide 27 (22-30) mmol/L Anion Gap 10 mmol/L BUN 20 H (7-17) mg/dL Creatinine 0.90 (0.52-1.04) mg/dL Est GFR (MDRD) Af Amer >60 (>60 ml/min/1.73 sqM) Est GFR (MDRD) Non-Af >60 (>60 ml/min/1.73 sqM) Glucose 112 H (74-99) mg/dL Calcium 10.3 H (8.4-10.2) mg/dL Troponin I (0.000-0.034) ng/mL 10/22/17 Range/Units 00:10 WBC (3.8-10.6) k/uL RBC (3.80-5.40) m/uL Hgb (11.4-16.0) gm/dL Hct (34.0-46.0) % MCV (80.0-100.0) fL MCH (25.0-35.0) pg MCHC (31.0-37.0) g/dL RDW (11.5-15.5) % Plt Count (150-450) k/uL Neutrophils % % Lymphocytes % % Monocytes % % Eosinophils % % Basophils % % Neutrophils # (1.3-7.7) k/uL Lymphocytes # (1.0-4.8) k/uL Monocytes # (0-1.0) k/uL Eosinophils # (0-0.7) k/uL Basophils # (0-0.2) k/uL D-Dimer (<0.60) mg/L FEU Sodium (137-145) mmol/L Potassium (3.5-5.1) mmol/L Chloride (98-107) mmol/L Carbon Dioxide (22-30) mmol/L Anion Gap mmol/L BUN (7-17) mg/dL Creatinine (0.52-1.04) mg/dL Est GFR (MDRD) Af Amer (>60 ml/min/1.73 sqM) Est GFR (MDRD) Non-Af (>60 ml/min/1.73 sqM) Glucose (74-99) mg/dL Calcium (8.4-10.2) mg/dL Troponin I <0.012 (0.000-0.034) ng/mL 10/22/17 04:12 EKG shows normal sinus rhythm with sinus arrhythmia. Possible left atrial enlargement. Ventricularly of [address] interval 1:30 milliseconds. QRS ration 96 most seconds. QT QTC 394/457 ms. No evidence of ST elevation or T- wave inversion. - Radiology Data Radiology results: report reviewed Chest x-ray was reviewed and negative for any acute process. Disposition Clinical Impression: Chronic bronchitis Disposition: HOME SELF-CARE Condition: Good Instructions: Upper Respiratory Infection (ED) Additional Instructions: Follow-up with primary care provider and pulmonology. Return to the emergency department if any alarming signs or symptoms occur. Prescriptions: Promethazine/Dextromethorphan [Phenergan DM Syrup] 5 ml PO TID #120 ml Referrals: Sebastian Bobby MD [Primary Care Provider] - 1-2 days Holly Wright MD [STAFF PHYSICIAN] - 1-2 days Time of Disposition: 02:08
[2017-10-22 00:44] LABS: Anion Gap 10 mmol/L; Blood Urea Nitrogen 20 mg/dL (7-17); Calcium 10.3 mg/dL (8.4-10.2); Carbon Dioxide 27 mmol/L (22-30); Chloride 104 mmol/L (98-107); Glucose 112 mg/dL (74-99); Potassium 4.3 mmol/L (3.5-5.1); Sodium 141 mmol/L (137-145)
[2017-10-22] MEDS ORDERED: SODIUM CHLORIDE 0.9% 1,000 ML IV SCH (00:45)
[2017-10-22 02:26] VITALS: BP 105/61; PULSE 69; RESP 16
== END 2017-10-22 02:26 | disposition home or self-care (01) ==
LOC: EC 22:30
DX: J42 Unspecified chronic bronchitis (principal); M79.7 Fibromyalgia; K21.9 Gastro-esophageal reflux disease without esophagitis; M19.90 Unspecified osteoarthritis, unspecified site; E07.9 Disorder of thyroid, unspecified; Z85.41 Personal history of malignant neoplasm of cervix uteri; Z79.82 Long term (current) use of aspirin; Z79.899 Other long term (current) drug therapy; Z79.891 Long term (current) use of opiate analgesic; Z91.048 Other nonmedicinal substance allergy status
CPT/HCPCS: 99284; 96374; 96361 ×2; 36415; 94640; 93005; 85379; 80048; 84484; 85025; 71046; J2405

== ENCOUNTER → 2017-11-20 | Outpatient (CLI) | payer OTHER, MEDICARE ==
--- NOTE | 2017-11-20 13:33 | CT ---
EXAMINATION TYPE: CT chest wo con DATE OF EXAM: 11/20/2017 COMPARISON: CTA chest December 25, 2016 HISTORY: Chronic cough x 1 year +. CT DLP: 663.6 mGycm. Automated Exposure Control for Dose Reduction was Utilized. TECHNIQUE: CT scan of the thorax is performed without IV contrast. High-resolution protocol with 1 m m sequences obtained and 10 mm intervals. FINDINGS: LUNGS: The lungs are grossly clear, there is no concerning parenchymal mass. There is no suspicious d istortion, reticulation, or prominent fibrosis seen bilaterally. There is no pleural effusion or pneu mothorax seen. No bronchiectasis is observed. MEDIASTINUM: Lack of IV contrast and technique is noted to limit evaluation for mediastinal and espec ially hilar adenopathy. There are no definitive greater than 1 cm hilar or mediastinal lymph nodes. No cardiomegaly or pericardial effusion is seen. OTHER: Cholecystectomy clips are redemonstrated. IMPRESSION: No suspicious acute or chronic pulmonary process.
== END | disposition home or self-care (01) ==
LOC: RADCTMAIN 12:39
PROVIDERS: ATTEND Internal Medicine Critical Care Medicine
DX: R05 Cough (principal)
CPT/HCPCS: 71250

== ENCOUNTER → 2020-10-12 | Outpatient (CLI) | payer MEDICARE ==
--- NOTE | 2020-10-12 13:22 | CT ---
EXAMINATION TYPE: CT angio chest DATE OF EXAM: 10/12/2020 1:11 PM COMPARISON: CTA chest December 25, 2016 HISTORY: Chest pain x's [address] DLP: 250 mGycm Automated exposure control for dose reduction was used. CONTRAST: CTA scan of the thorax is performed with IV Contrast, patient injected with 100 mL of Isovue 370, pul monary embolism protocol. MIP images are created and reviewed. FINDINGS: LUNGS: Some respiratory motion artifact degradation is present in the mid to lower lungs making evalu ation suboptimal particularly for subcentimeter nodules. No suspicious masses. No suspicious focal co nsolidation or groundglass opacity. No pleural effusion or pneumothorax. MEDIASTINUM: There is suboptimal bolus with near equal contrast in right and left heart system and he terogeneity in the periphery, no large central pulmonary embolism. Cannot exclude smaller segmental a nd subsegmental PE on this exam There are no greater than 1 cm hilar or mediastinal lymph nodes. N o pericardial effusion is seen. OTHER: Cholecystectomy clips are noted. S-shaped scoliosis is present. Nonspecific 1.2 cm lucent les ion involving left T11 vertebra coronal image 85 is unchanged from December 25, 2016 CT coronal image 88 favoring benign enchondroma. IMPRESSION: 1. Suboptimal study without large central pulmonary embolism. Smaller segmental and subsegmental PE n ot excluded on this study. 2. No suspicious acute pulmonary process.
== END | disposition home or self-care (01) ==
LOC: RADCTMAIN 12:44
PROVIDERS: ATTEND Internal Medicine Critical Care Medicine
DX: I26.93 Single subsegmental thrombotic pulmonary embolism without acute cor pulmonale (principal); Z91.040 Latex allergy status
CPT/HCPCS: 71275; Q9967

== ENCOUNTER 2021-05-05 17:05 | Emergency (ER) | payer MEDICARE ==
[2021-05-05] MEDS ORDERED: HYDROmorphone 1 MG/ML 1 ML SYRINGE IVP STA (17:36)
--- NOTE | 2021-05-05 17:38 | ED ---
General Adult HPI - General Chief complaint: Chest Pain Stated complaint: Chest and back pain Time Seen by Provider: 05/05/21 17:15 Source: patient Mode of arrival: wheelchair Limitations: no limitations - History of Present Illness Initial comments: Dictation was produced using [employer] dictation software. please excuse any grammatical, word or spelling errors. Chief Complaint: 55-year-old female presents with trapezius pain History of Present Illness: 55-year-old female she has history of fibromyalgia, thyroid disease also arthritis. States that she's been having this very strange chest and back pain for the last several weeks. She's been seeing urgent care and her primary care doctor is told that's musculoskeletal. She called today to assess them their opinion given that she is having continued pain. Patient called stat they said they have nothing left to do for her. She has history of seeing a pain specialist however she was fired from the pain specialist practice. Patient states that most of her pain is over her right trapezius. She reports that it's tender to the touch. The ROS documented in this emergency department record has been reviewed and confirmed by me. Those systems with pertinent positive or negative responses have been documented in the HPI. All other systems are other negative and/or noncontributory. PHYSICAL EXAM: General Impression: Alert and oriented x3, not in acute distress HEENT: Normocephalic atraumatic, extra-ocular movements intact, pupils equal and reactive to light bilaterally, mucous membranes moist. Cardiovascular: Heart regular rate and rhythm Chest: Able to complete full sentences, no retractions, no tachypnea Abdomen: abdomen soft, non-tender, non-distended, no organomegaly Musculoskeletal: Pulses present and equal in all extremities, no peripheral edema Motor: no focal deficits noted Neurological: CN II-XII grossly intact, no focal motor or sensory deficits noted Skin: Intact with no visualized rashes Psych: Normal affect and mood ED course: 55-year-old female presents to the emergency department for trapezius pain. Laboratory evaluation obtained. CBC, metabolic panel troponin is negative. Chest x-ray is nonacute. Patient reevaluated at bedside at 6:50 PM found to be in stable medical condition. She is not showing any signs of distress. Clini bharath presentation consistent with chest strain. Patient will be discharged. EKG interpretation: Ventricular rate 72, normal sinus rhythm,. Interval 1:30, care is 92, QTc 413. No SC prolongation, no QTC prolongation, no ST or T-wave changes noted. Overall, this EKG is unremarkable - Related Data Home Medications Medication Instructions Recorded Confirmed Aspirin EC [Ecotrin Low Dose] 81 mg PO DAILY 12/24/16 05/05/21 Cyanocobalamin/Folic AC/Vit B6 1 tab PO DAILY 12/24/16 05/05/21 [Foltabs 800 Tablet] Fluticasone Nasal Sarepta [Flonase 1 - 2 spr EA NOSTRIL DAILY PRN 12/24/16 05/05/21 Nasal Sarepta] Ibuprofen [Motrin] 800 mg PO Q8HR PRN 12/24/16 05/05/21 Albuterol Sulfate [Proair Hfa] 1 - 2 puff INHALATION Q6HR PRN 03/07/17 05/05/21 Levothyroxine Sodium [Levoxyl] 100 mcg PO MOTUWETHFRSA 03/07/17 05/05/21 ALPRAZolam [Xanax] 0.5 mg PO DAILY PRN 05/05/21 05/05/21 Budesonide [Pulmicort Flexhaler] 2 puff INHALATION RT-BID PRN 05/05/21 05/05/21 Levothyroxine Sodium [Levoxyl] 150 mcg PO NIELSEN 05/05/21 05/05/21 Magnesium 250 mg PO DAILY 05/05/21 05/05/21 Pantoprazole Sodium [Protonix] 40 mg PO BID 05/05/21 05/05/21 Previous Rx's Medication Instructions Recorded HYDROcodone/APAP 5-325MG [[place] 1 tab PO Q6HR PRN 3 Days #12 tab 05/05/21 5-325] Allergies Allergy/AdvReac Type Severity Reaction Status Date / Time adhesive tape Allergy Itching/BLI Verified 05/05/21 17:49 STERS latex Allergy Unknown Verified 05/05/21 17:49 Review of Systems ROS Statement: Those systems with pertinent positive or pertinent negative responses have been documented in the HPI. ROS Other: All systems not noted in ROS Statement are negative. Past Medical History Past Medical History: Chest Pain / Angina, Deep Vein Thrombosis (DVT), Fibromyalgia, GERD/Reflux, Osteoarthritis (OA), Thyroid Disorder Additional Past Medical History / Comment(s): factor V, lupus, reversal spondlosis neck/spine, minimal obstructive airway disease,DVT-LEFT LEG-GROIN, lupus History of Any Multi-Drug Resistant Organisms: None Reported Past Surgical History: Cholecystectomy Additional Past Surgical History / Comment(s): endometriosis surgeries, right knee scope and realigned with plate and screws, pre-cervical cancer with hysterectomy , lump removed from right thigh,left ovary removed,right foot x3, left foot Past Anesthesia/Blood Transfusion Reactions: No Reported Reaction Past Psychological History: Anxiety Smoking Status: Never smoker Past Alcohol Use History: Occasional Past Drug Use History: None Reported - Past Family History Mother Family Medical History: Cancer Additional Family Medical History / Comment(s): lung and bone cancer General Exam Limitations: no limitations Course Vital Signs 05/05/21 05/05/21 17:09 17:33 Temperature 98.4 F Pulse Rate 87 89 Respiratory 20 19 Rate Blood Pressure 114/81 124/88 O2 Sat by Pulse 98 95 Oximetry Medical Decision Making - Lab Data Result diagrams: 05/05/21 17:41 05/05/21 17:41 Lab Results 05/05/21 05/05/21 05/05/21 Range/Units 17:41 17:41 17:41 WBC 6.4 (3.8-10.6) k/uL RBC 4.37 (3.80-5.40) m/uL Hgb 14.1 (11.4-16.0) gm/dL Hct 41.3 (34.0-46.0) % MCV 94.4 (80.0-100.0) fL MCH 32.2 (25.0-35.0) pg MCHC 34.2 (31.0-37.0) g/dL RDW 13.2 (11.5-15.5) % Plt Count 270 (150-450) k/uL MPV 7.7 Neutrophils % 59 % Lymphocytes % 32 % Monocytes % 4 % Eosinophils % 2 % Basophils % 1 % Neutrophils # 3.8 (1.3-7.7) k/uL Lymphocytes # 2.0 (1.0-4.8) k/uL Monocytes # 0.3 (0-1.0) k/uL Eosinophils # 0.1 (0-0.7) k/uL Basophils # 0.0 (0-0.2) k/uL Sodium 139 (137-145) mmol/L Potassium 4.1 (3.5-5.1) mmol/L Chloride 104 (98-107) mmol/L Carbon Dioxide 25 (22-30) mmol/L Anion Gap 10 mmol/L BUN 11 (7-17) mg/dL Creatinine 0.74 (0.52-1.04) mg/dL Est GFR (CKD-EPI)AfAm >90 (>60 ml/min/1.73 sqM) Est GFR (CKD-EPI)NonAf >90 (>60 ml/min/1.73 sqM) Glucose 109 H (74-99) mg/dL Calcium 10.5 H (8.4-10.2) mg/dL Troponin I <0.012 (0.000-0.034) ng/mL Disposition Clinical Impression: Chest pain Disposition: HOME SELF-CARE Condition: Good Instructions (If sedation given, give patient instructions): Chest Pain (ED) Additional Instructions: Asked primary care doctor for physical medicine and rehabilitation (PM & R) doctor referral Prescriptions: HYDROcodone/APAP 5-325MG [[place] 5-325] 1 tab PO Q6HR PRN 3 Days #12 tab PRN Reason: Severe Pain Is patient prescribed a controlled substance at d/c from ED?: Yes If prescribed controlled substance>3 days was MAPS reviewed?: Prescribed <3 Days Referrals: Sebastian Bobby MD [Primary Care Provider] - 1-2 days
[2021-05-05 17:53] LABS: Basophils % (A) 1 %; Eosinophils # (A) 0.1 k/uL (0-0.7); Eosinophils % (A) 2 %; HCT 41.3 % (34.0-46.0); HGB 14.1 gm/dL (11.4-16.0); Lymphocytes % (A) 32 %; MCH 32.2 pg (25.0-35.0); MCHC 34.2 g/dL (31.0-37.0); MCV 94.4 fL (80.0-100.0); Mean Platelet Volume 7.7; Monocytes # (A) 0.3 k/uL (0-1.0); Monocytes % (A) 4 %; Neutrophils # (A) 3.8 k/uL (1.3-7.7); Neutrophils % (A) 59 %; Platelet Count 270 k/uL (150-450); RBC 4.37 m/uL (3.80-5.40); RDW 13.2 % (11.5-15.5); WBC 6.4 k/uL (3.8-10.6)
[2021-05-05 18:11] LABS: African American GFR (CKD) >90 (>60 ml/min/1.73 sqM); Anion Gap 10 mmol/L; Blood Urea Nitrogen 11 mg/dL (7-17); Calcium 10.5 mg/dL (8.4-10.2); Carbon Dioxide 25 mmol/L (22-30); Chloride 104 mmol/L (98-107); Glucose 109 mg/dL (74-99); Non-African American GFR(CKD) >90 (>60 ml/min/1.73 sqM); Potassium 4.1 mmol/L (3.5-5.1); Sodium 139 mmol/L (137-145)
--- NOTE | 2021-05-05 18:40 | XR ---
EXAMINATION TYPE: XR chest 1V portable DATE OF EXAM: 05/05/2021 COMPARISON: 10/24/2017 HISTORY: Chest pain TECHNIQUE: FINDINGS: Heart and mediastinum are normal. Lungs are clear. Diaphragm is normal. Bony thorax appears normal. There are chest leads. IMPRESSION: Normal chest. No change.
[2021-05-05 18:50] VITALS: BP 107/69; PULSE 63; RESP 18
[2021-05-05] MEDS ORDERED: ONDANSETRON 4 MG/2 ML VIAL IVP STA (18:50)
[2021-05-05 18:56] VITALS: TEMP 97.8
== END 2021-05-05 19:01 | disposition home or self-care (01) ==
LOC: EC 17:05
DX: R07.9 Chest pain, unspecified (principal); M54.9 Dorsalgia, unspecified; K21.9 Gastro-esophageal reflux disease without esophagitis; M79.7 Fibromyalgia; M32.9 Systemic lupus erythematosus, unspecified; M19.90 Unspecified osteoarthritis, unspecified site; F41.9 Anxiety disorder, unspecified; Z79.1 Long term (current) use of non-steroidal anti-inflammatories (NSAID); Z79.51 Long term (current) use of inhaled steroids; Z79.82 Long term (current) use of aspirin; Z79.899 Other long term (current) drug therapy; Z85.41 Personal history of malignant neoplasm of cervix uteri; Z86.718 Personal history of other venous thrombosis and embolism; Z90.49 Acquired absence of other specified parts of digestive tract; Z90.710 Acquired absence of both cervix and uterus; Z90.721 Acquired absence of ovaries, unilateral; Z91.040 Latex allergy status
CPT/HCPCS: 36415; 71045; 80048; 84484; 85025; 93005; 96374; 96375; 99285

== ENCOUNTER → 2022-08-17 | Outpatient (CLI) | payer MEDICARE ==
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
== END | disposition home or self-care (01) ==
LOC: RADCTMAIN 08:58
PROVIDERS: ATTEND Family Medicine
DX: S09.93XD Unspecified injury of face, subsequent encounter (principal); J32.9 Chronic sinusitis, unspecified; J34.2 Deviated nasal septum
CPT/HCPCS: 70486

== ENCOUNTER → 2024-04-12 | Outpatient (CLI) | payer MEDICARE ==
--- NOTE | 2024-04-16 13:42 | P.PCN ---
Date of Procedure: 04/14/24 Operative Findings: Home sleep study testing Date of service is 04/14/2024 History This is a 58-year-old female patient suspected to have obstructive sleep apnea. The patient reported an irregular sleep schedule. She does have a component of chronic insomnia related to fibromyalgia and chronic pain. Sleep apnea of adult instead. Yet my overall clinical suspicion was low on this patient. Based on that, home sleep study was ordered. Comorbid conditions include aortic valve regurgitation, recurrent DVTs along with factor V [place] maintained on anticoagulation with Eliquis, chronic chest wall pain, fibromyalgia, acid reflux and chronic sinus disease. Pertinent physical findings The patient's height is 5 feet and 4 inches and the weight is 179 pounds with a body mass index of 30.7 Technical description The [employer] system was used to complete his home sleep study. This is the preoperative study. The total recording duration was 7 hours and 46 minutes. The study started at 12:48 AM and ended at 8:34 AM. There was a total of 7 hours and 24 minutes of flow monitoring and 7 hours and 26 minutes of oxygen saturation monitoring. 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 No evidence of any significant sleep breathing disorder. The patient will need to optimize him with sleep schedule, sleep hygiene measures and continued treatment of comorbid conditions which are essentially affecting her sleep quality. No need for CPAP therapy at this point. Encourage weight loss. Will follow.
== END ==
LOC: 3 N SLEEP 13:11
PROVIDERS: ATTEND Internal Medicine Critical Care Medicine
DX: R06.83 Snoring (principal); F51.04 Psychophysiologic insomnia; M79.7 Fibromyalgia; E03.9 Hypothyroidism, unspecified; G89.29 Other chronic pain; R07.89 Other chest pain; G47.23 Circadian rhythm sleep disorder, irregular sleep wake type; G47.30 Sleep apnea, unspecified; K21.9 Gastro-esophageal reflux disease without esophagitis; I35.1 Nonrheumatic aortic (valve) insufficiency; D68.51 Activated protein C resistance; R05.3 Chronic cough; J32.9 Chronic sinusitis, unspecified; Z85.828 Personal history of other malignant neoplasm of skin; Z86.718 Personal history of other venous thrombosis and embolism; Z79.01 Long term (current) use of anticoagulants; Z91.048 Other nonmedicinal substance allergy status; Z91.040 Latex allergy status; Z79.890 Hormone replacement therapy